=== PATIENT | female | born 2000 | race African-American/Black ===

== ENCOUNTER 2021-07-14 12:02 | Emergency (ER) | payer MEDICAID ==
[~2021-07-14] VITALS: Ht 162.6 cm; Wt 104.0 kg
[2021-07-14 13:10] VITALS: BP 149/98
[2021-07-14] MEDS ORDERED: DIPH25CA83 MT (13:27)
== END 2021-07-14 13:38 | disposition home or self-care (01) ==
LOC: ER 12:02
DX: R21 Rash and other nonspecific skin eruption (principal)
CPT/HCPCS: 99282

== ENCOUNTER 2021-07-14 17:58 | Emergency (ER) | payer MEDICAID ==
[~2021-07-14] VITALS: Ht 162.6 cm; Wt 101.0 kg
[~2021-07-14 17:58] MED LIST: DIPH25CA83 MT
[2021-07-14 18:03] VITALS: BP 138/91
== END 2021-07-14 23:09 | disposition left against medical advice (07) ==
LOC: ER 17:58
DX: Z53.21 Procedure and treatment not carried out due to patient leaving prior to being seen by health care provider (principal)

== ENCOUNTER 2021-10-17 12:37 | Emergency (ER) | payer MEDICAID ==
[~2021-10-17] VITALS: Ht 165.1 cm; Wt 100.0 kg
[2021-10-17 12:58] VITALS: BP 138/69
[2021-10-17] MEDS ORDERED: CETIRIZINE 10MG TABLET PO SCH (13:03)
[2021-10-17] MEDS ORDERED: PREDNISONE 20MG TABLET PO ONE (13:15)
[2021-10-17] MEDS ORDERED: FAMOTIDINE 20MG TABLET PO ONE (13:15)
[2021-10-17] MEDS ORDERED: P50 MT (15:38)
[2021-10-17] MEDS ORDERED: [UNRECOGNIZED DRUG - CODE] MT (15:38)
[2021-10-17] MEDS ORDERED: FAMO-135 MT (15:38)
[2021-10-17] MEDS ORDERED: EPIN0.3P3 IM (15:38)
== END 2021-10-17 16:31 | disposition home or self-care (01) ==
LOC: ER 12:37
DX: R22.30 Localized swelling, mass and lump, unspecified upper limb (principal)
CPT/HCPCS: 99284; J7040; J7512